=== PATIENT | male | born 1955 | race Caucasian/White ===

== ENCOUNTER → 2016-12-22 | Outpatient (CLI) | payer MEDICARE ==
[~2016-12-22] MED LIST: ASP81CT PO; BENA20TA72 PO; CEPH500C PO; CITA10TA PO; CTLP20T PO; DXCC100C PO; HYDR25TA4 PO; METO-270 PO; METO25TA PO; OMEP-10 PO; OXYC-12 PO
--- NOTE | 2016-12-23 08:16 | ECHOCARDIOGRAPHY REPORT ---
PROCEDURE PHYSICIAN: DOUG SANEZ DATE OF PROCEDURE: 12/22/2016 TWO DIMENSIONAL ECHOCARDIOGRAM REPORT PRIMARY PHYSICIAN: OTHER PHYSICIAN: REFERRING PHYSICIAN: Dr. Moses ORDERING PHYSICIAN: INDICATION FOR THE PROCEDURE: Hypertension. MEASUREMENTS DERIVED VALUES LV DIAMETER (LAX) NORMALS NORMALS Diastolic 3.8 (3.6-5.2) Eject. Fract. 60% (60%+/-6%) Systolic (2.3-3.9) Diastolic Vol. % Shortening (0.22-0.42) Systolic Vol. Aortic Root IVS THICKNESS Diastolic 1 (0.6-1.1) LVPW THICKNESS Diastolic 1 (0.6-1.1) LA DIAMETER Systolic 3.4 (2.1-3.7) FINDINGS: 1. Technical quality is good. 2. The left ventricle is normal in size with normal contractility. Systolic function appeared to be normal. Estimated ejection fraction 60%. 3. The left atrium is normal in size. No clot or thrombus were seen within the left atrium. 4. The right atrium and right ventricle are normal in size. No clot or thrombus were seen within the right side. 5. Mitral valve is normal in morphology with mild mitral regurgitation noted by color Doppler flow. No mitral valve prolapse. No mitral valve stenosis. 6. Aortic valve is trileaflet with normal opening and closing pattern. No significant aortic stenosis or regurgitation was seen. 7. Tricuspid valve is normal in morphology with mild tricuspid regurgitation noted by color Doppler flow. Doppler across tricuspid valve estimated pulmonary artery pressure of 6+ right atrial pressure. 8. Pulmonic valve is functioning normally. 9. No pericardial effusion. IN CONCLUSION: 1. Normal left ventricular size and systolic function. Estimated ejection fraction 60%. 2. Mild mitral and tricuspid regurgitation. 3. Estimated pulmonary artery pressure of 10 mmHg. Job ID: [id number] Dictated Date: 12/22/2016 18:24:29 Operations Mgr Date: 12/23/2016 08:13:38 / [email or web address]
== END ==
LOC: CARD 13:35
PROVIDERS: ATTEND Physician Assistant
DX: I10 Essential (primary) hypertension (principal); R00.2 Palpitations; R06.02 Shortness of breath; K21.9 Gastro-esophageal reflux disease without esophagitis
CPT/HCPCS: 93306

== ENCOUNTER → 2016-12-24 | Outpatient (CLI) | payer MEDICARE ==
[~2016-12-24] MED LIST changes: +CATHETER FLUSH 10 ML SYR IV PRN
[2016-12-24 09:05] VITALS: BP 140/90
[2016-12-24 09:13] VITALS: BP 158/79
--- NOTE | 2016-12-24 20:34 | STRESS TEST ---
PROCEDURE PHYSICIAN: DOUG SAENZ DATE OF PROCEDURE: 12/24/2016 EXERCISE MYOVIEW STRESS TEST REPORT REFERRING PHYSICIAN: Dr. Moses INDICATION FOR THE PROCEDURE: Shortness of breath. BASELINE HEART RATE: 62 BASELINE BLOOD PRESSURE: 130/70. BASELINE EKG: Sinus rhythm with no ischemic changes. SUMMARY: The patient was injected with 10.31 mCi of technetium 99 Myoview and the resting images were obtained. Then the patient started exercising with a baseline heart rate, blood pressure and EKG mentioned above. At minute 3 and 30 seconds, he was injected with 30.5 mCi of technetium 99 Myoview. He was able to exercise for total of 4 minutes 30 seconds on standard Crow protocol, achieving maximum heart rate of 148 which is 93% of maximum expected heart rate. With peak exercise level, EKG was showing minimal nondiagnostic changes. Blood pressure was 169/79. During recovery, heart rate and blood pressure returned to baseline. EKG returned to baseline. The resting and stress images were reviewed and compared in the short axis, horizontal long axis, and vertical long axis views. Review of the images showed diaphragmatic attenuation with typical male pattern. No ischemia or infarction on SPECT images. SSS is 1, SDS 1, TID value 1.01. On the gated images, the left ventricle appeared to be normal size with normal contractility. Calculated ejection fraction 58%. CONCLUSION: 1. Fair exercise tolerance a total of 4 minutes 30 seconds on standard Crow protocol. Total 7 METs, achieving 93% of maximum expected heart rate. 2. Appropriate heart rate and blood pressure response to exercise. Returned to baseline during recovery. 3. Minimal nondiagnostic EKG changes with exercise. Returned to baseline during recovery. 4. Diaphragmatic attenuation with typical male pattern. No significant ischemia or infarction on SPECT images. 5. Normal left ventricular size with normal contractility. Calculated ejection fraction 58%. Job ID: [id number] Dictated Date: 12/24/2016 16:37:37 Coffin Maker Date: 12/24/2016 20:29:17 / ang
== END ==
LOC: CARD 07:16
PROVIDERS: ATTEND Physician Assistant
DX: K21.9 Gastro-esophageal reflux disease without esophagitis (principal); I10 Essential (primary) hypertension; R00.2 Palpitations; R06.02 Shortness of breath
CPT/HCPCS: 78452; 93017

== ENCOUNTER → 2017-12-01 | Outpatient (CLI) | payer MEDICARE ==
[~2017-12-01] MED LIST changes: -CATHETER FLUSH 10 ML SYR IV PRN; -METO-270 PO; +METO-387 PO
--- NOTE | 2017-12-01 11:43 | Diagnostic Imaging Report ---
INDICATION: Swelling and pruritus of the hand. COMPARISON: None. FINDINGS: Three views of the right hand show no fractures, dislocations, or other acute bony abnormalities identified. Joint spaces are well maintained throughout. The soft tissues appear unremarkable. No radiopaque foreign bodies are identified. IMPRESSION: Unremarkable radiographic exam of the right hand. Dictated by: Dictated on workstation # [id number]
== END ==
LOC: RAD 09:46
PROVIDERS: ATTEND Family Medicine
DX: M25.441 Effusion, right hand (principal); L29.8 Other pruritus
CPT/HCPCS: 73130

== ENCOUNTER 2018-06-24 12:47 | Outpatient (RCR) | payer MEDICARE, OTHER | END 2018-06-24 14:40 | disposition home or self-care (01) | PROVIDERS: ATTEND Orthopaedic Surgery Orthopaedic Surgery of the Spine | DX: M48.02 Spinal stenosis, cervical region (principal) ==

== ENCOUNTER 2019-11-09 05:39 | Outpatient (CLI) | payer MEDICARE, OTHER ==
[~2019-11-09] VITALS: Ht 193 cm; Wt 106.0 kg
[~2019-11-09 05:39] MED LIST changes: -METO-387 PO; +MTP25TSR PO
[2019-11-09] MEDS ORDERED: LACT1CAP72 PO (13:23)
[2019-11-09] MEDS ORDERED: OMEG-109 PO (13:23)
[2019-11-09] MEDS ORDERED: CITA10TA7 PO (13:23)
[2019-11-09] MEDS ORDERED: MULT-1005 PO (13:23)
[2019-11-09] MEDS ORDERED: GLUC-144 PO (13:23)
[2019-11-09] MEDS ORDERED: ASPI-586 PO (13:23)
[2019-11-09] MEDS ORDERED: OMEP40CA27 PO (13:23)
[2019-11-09] MEDS ORDERED: ATOR10TA66 PO (13:23)
[2019-11-09] MEDS ORDERED: MULT1CAP27 PO (13:23)
[2019-11-09] MEDS ORDERED: LISI10TA2 PO (13:23)
== END 2019-11-09 13:26 ==
LOC: PREOP 05:39
PROVIDERS: ATTEND Surgery
DX: Z01.818 Encounter for other preprocedural examination (principal)

== ENCOUNTER 2021-08-29 10:35 | Outpatient (RCR) | payer MEDICARE ==
[~2021-08-29 10:35] MED LIST changes: +ASPI-586 PO; +ATOR10TA66 PO; +CITA10TA9 PO; +GLUC-144 PO; +LACT1CAP72 PO; +LISI10TA25 PO; +MULT-1005 PO; +MULT1CAP27 PO; +OMEG-109 PO; +OMEP40CA6 PO
== END 2021-09-27 | disposition home or self-care (01) ==
PROVIDERS: ATTEND Nurse Practitioner Family
DX: H81.10 Benign paroxysmal vertigo, unspecified ear (principal)

== ENCOUNTER → 2022-10-31 | Outpatient (CLI) | payer MEDICARE | LOC: CARD 11:25 | PROVIDERS: ATTEND Internal Medicine Cardiovascular Disease | DX: I11.9 Hypertensive heart disease without heart failure (principal) | CPT/HCPCS: 93306 ==

== ENCOUNTER → 2022-11-19 | Outpatient (CLI) | payer MEDICARE ==
[~2022-11-19] MED LIST changes: +CATHETER FLUSH 10 ML SYR IVP PRN
[2022-11-19 13:30] VITALS: BP 144/73
--- NOTE | 2022-11-19 17:38 | Cardiology Stress Test Report ---
Stress Test Report Date of Procedure/Referring: Date of Procedure: Nov 19, 2022 PCP Edis Costa MD Admitting Physician Admitting Physician: Attending Physician: Margarito Sepulveda MD Indications: HTN Baseline Heart Rate: 60 Baseline Blood Pressure: Blood Pressure Systolic: 144 Blood Pressure Diastolic: 73 Vital Signs Date Time Temp Pulse Resp B/P (MAP) Pulse Ox O2 Delivery O2 Flow Rate FiO2 11/19/22 13:30 64 144/73 (96) 98 Baseline Vital Signs Vital Signs Date Time Temp Pulse Resp B/P (MAP) Pulse Ox O2 Delivery O2 Flow Rate FiO2 11/19/22 13:30 64 144/73 (96) 98 Baseline EKG: Baseline EKG: NSR Summary: After explaining the procedure and details to the patient, he signed the consent and was brought to the stress nuclear laboratory. Patient exercised on standard Crow protocol, EKG, heart rate and blood pressure were monitored continuously, resting and stress doses of radio tracer were injected, imaging was acquired and reviewed in the short axis, horizontal long axis and vertical long axis views Patient was able to exercise for a total of 4.30 minutes on Crow protocol, METs 6.4 Maximum heart rate 145 Maximum blood pressure 223/89 Stress EKG, Minimal nondiagnostic changes Recovery EKG, Return to baseline TID: 1.06 SSS: 4 SDS: 3 EF: 52 Conclusion: Fair exercise tolerance for a total of 4 minutes and 30 seconds on standard Crow protocol, 8.4 METS achieving 93% of maximal expected heart rate Appropriate heart rate response to exercise with hypertensive response to exercise with peak blood pressure 223/89 return to baseline during recovery Nondiagnostic EKG changes with exercise return to baseline during recovery Diaphragmatic attenuation with mild reversible ischemia involving the mid to a pical inferior wall and inferolateral wall Normal left ventricular size, ejection fraction 52% Copy Copies To 1: EDIS COSTA MD, BASHAR J MD Nov 19, 2022 17:38
== END ==
LOC: CARD 11:54
PROVIDERS: ATTEND Internal Medicine Cardiovascular Disease
DX: I10 Essential (primary) hypertension (principal); J98.6 Disorders of diaphragm
CPT/HCPCS: 78452; 93017; A9502

== ENCOUNTER 2022-12-03 09:02 | Day surgery (SDC) | payer MEDICARE ==
[2022-12-03] VITALS (11 sets, daily range): BP systolic 108–170; BP diastolic 61–93
[~2022-12-03] VITALS: Ht 193 cm; Wt 107.0 kg
[~2022-12-03 09:02] MED LIST changes: -CATHETER FLUSH 10 ML SYR IVP PRN
[2022-12-03] MEDS ORDERED: LIDOCAINE 1% INJ 20 ML VIAL ONE (09:24)
[2022-12-03] MEDS ORDERED: NS IV 1000 ML 1,000 ML ONE (09:24)
[2022-12-03] MEDS ORDERED: HEParin (CATH LAB) 2,000 ML IV ONE (09:24)
[2022-12-03] MEDS ORDERED: NS IV 1000 ML 1,000 ML IV SCH ×2 (09:30→11:30)
[2022-12-03 09:53] LABS: HEMATOCRIT 47 % (40-54); HEMOGLOBIN 15.5 g/dL (13.3-17.7); MEAN CORPUSCULAR HEMOGLOBIN 31 pg (25-34); MEAN CORPUSCULAR HGB CONC 33 g/dL (32-36); MEAN CORPUSCULAR VOLUME 94 fL (80-99); MEAN PLATELET VOLUME 9.6 fL (9.0-12.2); PLATELET COUNT 168 10^3/uL (130-400); WHITE BLOOD COUNT 5.2 10^3/uL (4.3-11.0)
--- NOTE | 2022-12-03 10:04 | Diagnostic Imaging Report ---
CLINICAL INDICATION: Patient with abnormal stress test. EXAM: Portable chest x-ray upright view. COMPARISON: Chest x-ray dated 04/03/2014. FINDINGS: Lungs/pleura: Lungs are clear. There is no pneumothorax. There is no pleural effusion. Mediastinum: Unremarkable. Pulmonary vasculature: Unremarkable. Heart: Unremarkable. Bones/extrathoracic soft tissue: There are hypertrophic spurs involving the thoracic spine. Again seen radiodense BB shaped foreign object overlying the right axillary region. IMPRESSION: There is no radiographic evidence of acute cardiopulmonary process. Dictated by: Dictated on workstation # [id number]
[2022-12-03 10:06] LABS: ALBUMIN 4.7 GM/DL (3.2-4.5); CHLORIDE 102 MMOL/L (98-107); POTASSIUM 3.8 MMOL/L (3.6-5.0); SODIUM 138 MMOL/L (135-145)
[2022-12-03 10:07] LABS: CALCIUM 9.2 MG/DL (8.5-10.1); PROTHROMBIN TIME PATIENT 13.7 SEC (12.2-14.7)
[2022-12-03 10:08] LABS: GLUCOSE 115 MG/DL (70-105); TOTAL PROTEIN 7.5 GM/DL (6.4-8.2)
[2022-12-03 10:09] LABS: CARBON DIOXIDE 22 MMOL/L (21-32)
[2022-12-03 10:10] LABS: BILIRUBIN,TOTAL 2.6 MG/DL (0.1-1.0)
[2022-12-03 10:12] LABS: ALKALINE PHOSPHATASE 56 U/L (40-136); CREATININE SERUM 1.19 MG/DL (0.60-1.30); GFR ESTIMATED 68
[2022-12-03 10:13] LABS: BUN/CREATININE RATIO 18
[2022-12-03 10:15] LABS: ALANINE AMINOTRANSFERASE 35 U/L (0-55)
[2022-12-03] MEDS ORDERED: VERAPAMIL 5 MG/2 ML (CALAN) VIAL IV ONE (10:25)
[2022-12-03] MEDS ORDERED: fentaNYL INJ 100 MCG/2 ML AMP ONE (10:25)
[2022-12-03] MEDS ORDERED: MIDAZOLAM 5 MG/5 ML (VERSED) VIAL ONE (10:25)
[2022-12-03] MEDS ORDERED: HEParin 1000 UNIT/ML (10ML VIAL) FOR BOLUS ONE (10:25)
[2022-12-03] MEDS ORDERED: NITRO DRIP 25000 MCG/D5W 250 ML IV ONE (10:26)
[2022-12-03] MEDS ORDERED: ASPI-1238 PO (10:46)
[2022-12-03] MEDS ORDERED: FAMO20TA3 PO (10:46)
[2022-12-03] MEDS ORDERED: ROSU5TAB13 PO (10:46)
[2022-12-03] MEDS ORDERED: ADAL40PE SQ (10:46)
[2022-12-03] MEDS ORDERED: ROPI1TAB PO (10:46)
[2022-12-03] MEDS ORDERED: ROPI0.5T4 PO (10:46)
[2022-12-03] MEDS ORDERED: MULT-1136 PO (10:46)
[2022-12-03] MEDS ORDERED: LISI10TA25 PO (10:46)
[2022-12-03] MEDS ORDERED: MTP25TSR PO (10:46)
[2022-12-03] MEDS ORDERED: TMSL.4C PO (10:46)
[2022-12-03] MEDS ORDERED: TIZA-186 PO (10:46)
[2022-12-03] MEDS ORDERED: OMEG1CAP58 PO (10:46)
[2022-12-03] MEDS ORDERED: GLUC-219 PO (10:46)
[2022-12-03] MEDS ORDERED: ACET325T38 PO (10:46)
[2022-12-03] MEDS ORDERED: TURM500T PO (10:46)
[2022-12-03] MEDS ORDERED: GABA-486 PO (10:50)
[2022-12-03] MEDS ORDERED: LACT1CAP28 PO (10:50)
--- NOTE | 2022-12-03 11:31 | Discharge Inst-Post CATH ---
Discharge Inst-CATH/EP Problems Reviewed?: Yes Post Cardiac Cath/EP D/C Inst Follow Up/Plan Appointment with Dr. Sepulveda's office in 2 to 4 weeks <b>CARDIAC CATH/EP PROCEDURE DISCHARGE INSTRUCTIONS</b> ACTIVITY * Go Home directly and rest. * Limit activity of the leg (or wrist if it was used) for 7 days including aer obics, swimming, jogging, bicycling, etc. * Restrict stair-climbing for 7 days if possible, if not, climb up with your non-cath leg, then bring together on the same step. * Avoid lifting, pushing, pulling or excessive movement of the affected extremi ty for 7 days. * Customary sexual activity may be resumed after 2 days-use caution not to use a position that strains or causes pain to the affected extremity. * No driving for 24 hours. * NO SMOKING. * Avoid straining for bowel movements for 7 days. * Gentle walking on level ground is allowed. * Returning to work will depend on the type of procedure and the results. Your doctor will discuss this with you. CALL YOUR DOCTOR FOR ANY OF THE FOLLOWING: *If bleeding from the puncture site occurs- Apply gentle pressure to site with clean cloth and call your doctor or EMS. * If a knot or lump forms under the skin, increases in size, or causes pain. * If bruising appears to be worsening or moving further down your leg instead of disappearing. * Temperature above 101 F. CARE OF YOUR GROIN INCISION; * Bruising or purple discoloration of the skin near the puncture site is common. * You may shower only, no bathtub bathing for 5 days. Be careful to avoid slipping as your leg may feel stiff. * If a closure device was used on your femoral artery, please see the attached guide regarding care of the device and your leg. * Leave dressing on FOR 24 hours. CARE OF YOUR WRIST INCISION; * Bruising or purple discoloration of the skin near the puncture site is common. * You may shower. * DO NOT submerge wrist. * Leave dressing on FOR 24 hours. DOUG SEPULVEDA MD Dec 03, 2022 11:31
--- NOTE | 2022-12-03 11:34 | Cardiac Cath Report ---
Cardiac Cath Report Physician (s)/Rotor Coil Taper (s) Physician DOUG SAENZ MD Pre-Procedure Diagnosis Pre-Procedure Diagnosis: Coronary artery disease Post-Procedure Note Procedure Start Date: Dec 03, 2022 Procedure Start Time: 11:32 Name of Procedure: Left heart catheterization Findings/Procedure Note PROCEDURE NOTE: 66-year-old gentleman with history of hypertension, hyperlipidemia, had an abnormal stress test, scheduled for cardiac catheterization possible PTCA. After explaining the procedure to the patient, all pros and cons were explained, all questions were answered. The patient signed the consent and then he was placed in the cardiac catheterization laboratory. Groin was prepped in SL fashion local anesthesia was used. Sheath placed in the right radial artery, Connell catheter was advanced to the left ventricular cavity, pressure was measured, pullback LV to aorta was done. I used multiple different catheters to achieve adequate engagement of the left and right system, angiogram was done. At the end of the procedure the sheath was removed. Vascular band was used FINDINGS: Hemodynamics LV 127/12, end-diastolic pressure of 12 Aorta 116/74 mean of 89 ANATOMY: Left Main is free of obstructive disease Left Anterior Descending is slightly tortuous with mild disease 30 to 40% ostial stenosis nonobstructive disease Left Circumflex has mild disease nonobstructive disease Right Coronary Artery is dominant artery with mild disease nonobstructive disease LV Gram was not done, pressure was measured CONCLUSION: Mild coronary artery disease 30 to 40% ostial LAD stenosis, nonobstructive disease Normal left ventricular end-diastolic pressure DISCUSSION AND RECOMMENDATION: Abnormal stress test is probably due to extracardiac attenuation, medical therapy is recommended Anesthesia Type: Conscious Sedation Estimated blood loss (mL): 15 ml Contrast Amount: 60 ml Total Radiation Dose: 467 mGy Post-Procedure Diagnosis Post-operative diagnosis: Chest pain Coronary artery disease Hypertension Hyperlipidemia DOUG SAENZ MD Dec 03, 2022 11:34
== END 2022-12-03 14:55 | disposition home or self-care (01) ==
LOC: CATH 09:02 → CSD 11:45 → CATH 14:55
PROVIDERS: ATTEND Internal Medicine Cardiovascular Disease
DX: I25.10 Atherosclerotic heart disease of native coronary artery without angina pectoris (principal); I11.9 Hypertensive heart disease without heart failure; R60.0 Localized edema; K21.9 Gastro-esophageal reflux disease without esophagitis; I65.23 Occlusion and stenosis of bilateral carotid arteries; E78.2 Mixed hyperlipidemia; F41.9 Anxiety disorder, unspecified; F32.A Depression, unspecified; Z79.899 Other long term (current) drug therapy
CPT/HCPCS: 71045; 80053; 85027; 85610; 85730; 87081; 93005; 93458; C1894; 36415